=== PATIENT | female | born 1980 | race Caucasian/White ===

== ENCOUNTER → 2018-11-04 | Outpatient (REF) | payer OTHER ==
[~2018-11-04] MED LIST: /CIPR75TA; /DULO30CA; /WARF25TA; /WARF2TA; ACET500C; ACET65TA; DARV100T; EC-N500T; KARIVA; TRAM50TA2; TRAMADOL; TUSSSUS5; ZANT150T
[2018-11-04 20:19] LABS: AMORPHOUS SEDIMENT LARGE (NEGATIVE); APPEARANCE, URINE CLOUDY (CLEAR); BACTERIA, URINE AUTO NEGATIVE (NEGATIVE); BILIRUBIN, URINE AUTO NEGATIVE (NEGATIVE); BLOOD, URINE BLOOD NEGATIVE (NEGATIVE); COLOR, URINE YELLOW (YELLOW); GLUCOSE, URINE (UA) AUTO NEGATIVE (NEGATIVE); KETONE, URINE AUTO NEGATIVE (NEGATIVE); LEUKOCYTE ESTERASE, URINE AUTO NEGATIVE (NEGATIVE); NITRITE, URINE AUTO NEGATIVE (NEGATIVE); PROTEIN, URINE AUTO NEGATIVE (NEGATIVE); RBC, URINE AUTO 1 /HPF (0-3); SPECIFIC GRAVITY URINE AUTO 1.019 (1.002-1.035); SQUAMOUS EPITHELIAL CELL UR AU 2 /HPF (0-6); UROBILINOGEN, URINE AUTO 0.2 mg/dL (0.0-2.0); WBC, URINE AUTO 0 /HPF (0-3)
== END ==
LOC: M LAB REF 09:39
PROVIDERS: ATTEND Physician Assistant
DX: N39.0 Urinary tract infection, site not specified (principal)

== ENCOUNTER → 2018-11-23 | Outpatient (REF) | payer OTHER ==
[2018-11-25 14:55] LABS: HPV HYBRID CAPTURE II Negative (Negative)
== END ==
LOC: M LAB REF 17:47
PROVIDERS: ATTEND Obstetrics & Gynecology
DX: Z12.4 Encounter for screening for malignant neoplasm of cervix (principal)

== ENCOUNTER → 2019-11-16 | Outpatient (CLI) | payer OTHER ==
[~2019-11-16] MED LIST changes: -/DULO30CA; -/WARF25TA; -/WARF2TA; +COUM1TAB16; +COUM1TAB18; +CYMB1CAP5
--- NOTE | 2019-11-16 12:00 | REP ---
DIGITAL DIAGNOSTIC BILATERAL MAMMOGRAPHY WITH CAD, 3-D TOMOGRAPHY, AND FOCUSED LEFT BREAST SONOGRAPHY: HISTORY: Left breast cyst. The patient reports upper outer quadrant pain on the left with thickening and tenderness. Comparison is made with prior mammography of the right breast from [facility] dated this April 12, 2008 and December 06, 2008. MAMMOGRAPHIC FINDINGS: Breast parenchyma is heterogeneously dense in a pattern which inhibits the sensitivity of mammography. On routine mammographic views, there is a needle biopsy marker clip in the right breast medially at the site where prior mammography showed a nodule. By history, this was benign. No dominant density is seen in either breast mammographically. 3D tomography shows no suspicious finding. SONOGRAPHIC FINDINGS: The upper outer quadrant of the left breast was scanned. Heterogeneous fibroglandular background echotexture is seen. There are three hypoechoic nodules seen. In the 1-o'clock position, there is a 0.7 x 0.3 x 0.5 cm hypoechoic oval shaped nodule located 3.6 cm from the nipple. At 2-o'clock position, there is a 1.4 x 0.7 x 1.5 cm hypoechoic nodule located 4.5 cm from the nipple. At 2-o'clock position, there is also a 1.6 x 0.6 x 1.3 cm nodule located 3.1 cm from the nipple. Each of these is oval in shape with its long axis parallel to the skin. They have a somewhat lobulated borders with enhanced through transmission. They are consistent with fibroadenomas although nonspecific. No cyst is seen. No architectural distortion is noted. IMPRESSION: BIRADS 3: BI-RADS/ACR category 3 mammogram. Probably Benign Findings. BIRADS category 3 probably benign breast imaging. There are three solid hypoechoic nodules in the upper outer quadrant of the left breast compatible with fibroadenomas. Followup sonography is recommended in 6 months. Mammography is unremarkable and can be repeated in 1 year bilaterally. This mammogram was interpreted with the aid of an FDA-approved computer-aided detection system. The patient states she had a clinical breast exam in November 2019. The patient letter being requested is M3 dense. This patient's estimated [facility] lifetime risk assessment for the breast cancer is 12.6 %. Electronically Signed by Gil Ibrahim MD 11/16/2019 01:31 P
== END ==
LOC: M RAD 08:01
PROVIDERS: ATTEND Advanced Practice Midwife
DX: N60.02 Solitary cyst of left breast (principal)
CPT/HCPCS: 76642; 77066; G0279

== ENCOUNTER → 2019-12-02 | Outpatient (CLI) | payer OTHER ==
[~2019-12-02] MED LIST changes: +LIDOCAINE 1% MDV 20ML VIAL As Ordered ONE; +SODIUM BICARBONATE 8.4% INJ 50MEQ 50 ML VIAL As Ordered ONE
[2019-12-02 09:09] VITALS: BP 114/68
--- NOTE | 2019-12-02 09:59 | REP ---
Digital diagnostic unilateral left breast mammography with CAD: Two views. History: Marker clip placement views. The patient is status post ultrasound-guided needle biopsy procedure. Findings: Craniocaudad and mediolateral views of the left breast demonstrate the HydroMARK clip in the upper outer quadrant posteriorly. There is no evidence of hematoma. Impression: Marker clip from ultrasound-guided biopsy noted in the upper outer quadrant left breast. Electronically Signed by Gil Ibrahim MD 12/02/2019 06:34 P
--- NOTE | 2019-12-02 11:35 | ROOPDOC ---
[facility] Report Of Operation Report of Operation DATE OF PROCEDURE: 12/02/19 PREPROCEDURE DIAGNOSES: left breast masses POSTPROCEDURE DIAGNOSES: left breast masses PROCEDURE: Ultrasound guided biopsy of one of three left breast masses and clip placement SURGEON: Adama Quintero TRANSFER MACHINE OPERATOR: ANESTHESIA:local, 6 cc ESTIMATED BLOOD LOSS: Approximately 1 mL. COMPLICATIONS: none REMARKS: clip in good position on post bx mammogram DESCRIPTION OF PROCEDURE: Lidocaine 1% Sodium Bicarbonate 8.4% Hydromark clip LOT [id number] Expiration 09/19/2022 REF [id number] Bx device: BARD [id number] x10 cm LOT [id number] Expiration 09/05/2022 REF [id number] Informed consent was obtained in the preop area. The most common risk and possible complications including bleeding, hematoma, bruising, infection, injury to surrounding structures were explained to the patient and she expressed understanding. Patient was taken to the procedure room and placed on the bed in the supine position with the left upper extremity placed above the head. Appropriate time out was done stating patients name, date of , and the procedure to be performed. The left breast was prepped and draped in the usual fashion. The ultrasound was used to confirm the location of the lesion in the left breast at 2:00. There were two hypoechoic masses present at that location and one smaller hypoechoic mass at 1:00. Decision before procedure was started to biopsy one of the masses since all of them look similar and likely represent fibroadenomas. Plain Lidocaine 1% and 8.4% sodium bicarbonate 10:1 mix was used to numb the skin, the biopsy site and tissues along the anticipated biopsy tract. Small skin incision was made with blade number 11. BARD Marquee 14G cannula with introducer ([id number]) was inserted through the incision and advanced under the ultrasound guidance to position immediately adjacent to the lesion. Next, the introducer was removed and BARD Marquee 14G biopsy device was places in the cannula. Pre-biopsy imaging, and post-biopsy imaging were captured. Five good core biopsies were taken at various levels of the lesion. Next, the biopsy device was withdrawn and a clip introducer was inserted into the biopsy site via the cannula. The Hydromark clip was deployed under direct vision. Post-clip placement image was captured. Manual pressure over the biopsy cavity and tract was held after the clip introducer was withdrawn. No bleeding was noted upon removal of the pressure. Post-biopsy mammogram of the left breast was obtained and showed clip in expected position. Postprocedural dressing was placed. Patient tolerated procedure well and was taken to the recovery unit in stable condition. Discharge instructions were discussed with the patient and she expressed understanding. ADAMA Avila DO Dec 02, 2019 11:34
--- NOTE | 2019-12-02 13:16 | REP ---
Left breast sonography: History: Left breast biopsy. Findings: Sonographic guidance is provided to Dr. Quintero who performed ultrasound-guided needle biopsy procedure. Electronically Signed by Gil Ibrahim MD 12/02/2019 06:37 P
== END ==
LOC: M IRPRO 07:33
PROVIDERS: ATTEND Surgery
DX: N60.22 Fibroadenosis of left breast (principal)

== ENCOUNTER → 2020-12-05 | Outpatient (REF) | payer OTHER ==
[~2020-12-05] MED LIST changes: -LIDOCAINE 1% MDV 20ML VIAL As Ordered ONE; -SODIUM BICARBONATE 8.4% INJ 50MEQ 50 ML VIAL As Ordered ONE
[2020-12-05 18:37] LABS: APPEARANCE, URINE CLEAR (CLEAR); BACTERIA, URINE AUTO NEGATIVE (NEGATIVE); BILIRUBIN, URINE AUTO NEGATIVE (NEGATIVE); BLOOD, URINE BLOOD NEGATIVE (NEGATIVE); COLOR, URINE YELLOW (YELLOW); GLUCOSE, URINE (UA) AUTO NEGATIVE (NEGATIVE); KETONE, URINE AUTO NEGATIVE (NEGATIVE); LEUKOCYTE ESTERASE, URINE AUTO NEGATIVE (NEGATIVE); NITRITE, URINE AUTO NEGATIVE (NEGATIVE); PROTEIN, URINE AUTO NEGATIVE (NEGATIVE); RBC, URINE AUTO 0 /HPF (0-3); SPECIFIC GRAVITY URINE AUTO 1.023 (1.002-1.035); SQUAMOUS EPITHELIAL CELL UR AU 0 /HPF (0-6); UROBILINOGEN, URINE AUTO 0.2 mg/dL (0.0-2.0); WBC, URINE AUTO 1 /HPF (0-3)
== END ==
LOC: M LAB REF 16:35
PROVIDERS: ATTEND Physician Assistant
DX: N39.0 Urinary tract infection, site not specified (principal)

== ENCOUNTER → 2020-12-14 | Outpatient (REF) | payer OTHER ==
[2020-12-14 19:04] LABS: APPEARANCE, URINE CLEAR (CLEAR); BACTERIA, URINE AUTO 1+ (NEGATIVE); BILIRUBIN, URINE AUTO NEGATIVE (NEGATIVE); BLOOD, URINE BLOOD 1+ (NEGATIVE); COLOR, URINE AMBER (YELLOW); GLUCOSE, URINE (UA) AUTO NEGATIVE (NEGATIVE); KETONE, URINE AUTO TRACE mg/dL (NEGATIVE); LEUKOCYTE ESTERASE, URINE AUTO NEGATIVE (NEGATIVE); NITRITE, URINE AUTO POSITIVE (NEGATIVE); PROTEIN, URINE AUTO NEGATIVE (NEGATIVE); RBC, URINE AUTO 9 /HPF (0-3); SPECIFIC GRAVITY URINE AUTO 1.017 (1.002-1.035); SQUAMOUS EPITHELIAL CELL UR AU 0 /HPF (0-6); WBC, URINE AUTO 1 /HPF (0-3)
== END ==
LOC: M LAB REF 18:32
PROVIDERS: ATTEND Physician Assistant
DX: N39.0 Urinary tract infection, site not specified (principal)

== ENCOUNTER → 2020-12-14 | Outpatient (CLI) | payer OTHER ==
--- NOTE | 2020-12-14 20:10 | REP ---
INDICATION: KIDNEY STONES. COMPARISON: None. TECHNIQUE: Two AP views abdomen and pelvis. FINDINGS: There is mild diffuse fecal material throughout the colon. No dilated bowel loops are seen. No abnormal calcifications are seen. No definite renal stones are seen. IUD is seen in the pelvis centrally. The visualized osseous structures are unremarkable. IMPRESSION: Unremarkable KUB. No radiographic evidence of renal stones. <Electronically signed by Feliz Mix > 12/14/202005
== END ==
LOC: M RAD 18:55
PROVIDERS: ATTEND Physician Assistant
DX: Z87.442 Personal history of urinary calculi (principal); Z97.5 Presence of (intrauterine) contraceptive device

== ENCOUNTER 2020-12-25 11:12 | Emergency (ER) | payer OTHER ==
[~2020-12-25] VITALS: Ht 170.2 cm; Wt 70.6 kg
--- OUTSIDE RECORDS SUMMARY | 2020-12-25 11:21 | CCD ---
Author Author [facility] Organization [facility] Address Unknown Phone Unavailable Care Team Providers Care Sail Lay Out Worker Name Role Phone Daina Serrano Unavailable PROBLEMS Type Condition ICD9-CM Code [id number] Code Onset Dates Condition S tatus W/U Status Risk SNOMED Code Notes Problem Urgency of urination 788.63 Active confirmed 51202010 Problem Bilateral kidney stones 592.0 Active confirmed 66859253 Problem History of pulmonary embolism Z86.711 Active confir med 873214708 Problem Factor V Leiden D68.51 Active confirmed 3070 36723 Problem Left ureteral calculus 592.1 Active confirmed 55628965 Problem Rash on lips K13.0 Active confirmed 9755198 Problem MSSA (methicillin susceptible Staphylococcus aureus) A49.01 Active confirmed 352454290 Problem Perioral dermatitis L71.0 Active confirmed 550859916 ALLERGIES Allergen (clinical drug ingredient) Drug/Non Drug Allergy do cumented on EMR Reaction Allergy Type Onset Date Status Morphine [place] Faint, sweaty Non Drug Allergy Active ENCOUNTERS from 1980 to 2020-12-19 Encounter Location Date Provider Diagnosis [facility] [address] [place] [id number] Dec, Daina Serrano IMMUNIZATIONS Vaccine Route Administration Date Status Influenza (6mo & up) Fluzone Unknown April 17, 2015 Ref used Influenza (6mo & up) Fluzone Unknown February 20, 2015 Ref used SOCIAL HISTORY Tobacco Use: Social History Observation Description Date Details (start date - stop date) Never Smoker Sex Assigned At : Social History Observation Description Sex Assigned At Unknown Sexual Hx: Question Answer Notes Had sex in the last 12 months (vaginal, oral, or anal)? Yes Have you ever had an STD? No Prevention Strategies discussed: Other with Men only Use protection? No Tobacco Use: Question Answer Notes Are you a: never smoker REASON FOR REFERRAL No Information VITAL SIGNS No information MEDICATIONS Medication SIG (Take, Route, Frequency, Duration) Notes Start Da te End Date Status Keflex 750 MG as directed Orally Act bina Aspirin 81 MG 1 tablet Orally Once a day Not-Taking PROCEDURES No Information RESULTS No Results REASON FOR VISIT No Information MEDICAL (GENERAL) HISTORY Type Description Date Medical History Factor 5 Leiden mutation, heterozygous Medical History pulmonary embolism May 2010 Medical History left nephrolithiasis Medical History hospital-acquired pneumonia Pseudomonas May 2010 Surgical History D&C 2005 Surgical History Kidney stone 04/19/15 Surgical History x-[id number]- 09/11/16 Surgical History Right breast cyst, benign 2008 ([facility]) 2008 Hospitalization History [facility] Hospitalization History Pneumonia Goals Section No Information Health Concerns No Information MEDICAL EQUIPMENT No Information MENTAL STATUS No Information FUNCTIONAL STATUS No Information ASSESSMENTS No Information PLAN OF TREATMENT Next Appt Details Provider Name:Mike Raman, 2020-12-27 08:00:00 AM, [address], [place], [id number], Insurance Providers Payer Name Payer Address Payer Phone Insured Name Patient Relati onship to Insured Coverage Start Date Coverage End Date [employer] [address] [facility] [phone] T[employer] IYER self
--- OUTSIDE RECORDS SUMMARY | 2020-12-25 11:21 | CCD ---
Author Author [facility] Organization [facility] Address Unknown Phone Unavailable Care Team Providers Care Manager Information Name Role Phone Alexey, Marlene MEDIA STRATEGIST Unavailable Unavailable Alexey, Marlene MEDIA STRATEGIST Unavailable Unavailable Alexey, Marlene MEDIA STRATEGIST Unavailable Unavailable Alexey, Marlene MEDIA STRATEGIST Unavailable Unavailable Alexey, Marlene MEDIA STRATEGIST Unavailable Unavailable Alexey, Marlene MEDIA STRATEGIST Unavailable Unavailable Alexey, Marlene MEDIA STRATEGIST Unavailable Unavailable Alexey, Marlene MEDIA STRATEGIST Unavailable Unavailable Alexey, Marlene MEDIA STRATEGIST Unavailable Unavailable Alexey, Marlene MEDIA STRATEGIST Unavailable Unavailable Alexey, Marlene MEDIA STRATEGIST Unavailable Unavailable Alexey, Marlene MEDIA STRATEGIST Unavailable Unavailable Alexey, Marlene MEDIA STRATEGIST Unavailable Unavailable Alexey, Marlene MEDIA STRATEGIST Unavailable Unavailable Alexey, Marlene MEDIA STRATEGIST Unavailable Unavailable Alexey, Marlene MEDIA STRATEGIST Unavailable Unavailable Alexey, Marlene MEDIA STRATEGIST Unavailable Unavailable Alexey, Marlene MEDIA STRATEGIST Unavailable Unavailable Alexey, Marlene MEDIA STRATEGIST Unavailable Unavailable Alexey, Marlene MEDIA STRATEGIST Unavailable Unavailable Alexey, Marlene MEDIA STRATEGIST Unavailable Unavailable Alexey, Marlene MEDIA STRATEGIST Unavailable Unavailable Alexey, Marlene MEDIA STRATEGIST Unavailable Unavailable Alexey, Marlene MEDIA STRATEGIST Unavailable Unavailable Alexey, Marlene MEDIA STRATEGIST Unavailable Unavailable Alexey, Marlene MEDIA STRATEGIST Unavailable Unavailable Alexey, Marlene MEDIA STRATEGIST Unavailable Unavailable MANJINDER, J Michelle ANP Unavailable Unavailable MANJINDER, J Michelle ANP Unavailable Unavailable MANJINDER, J Michelle ANP Unavailable Unavailable MANJINDER, J Michelle ANP Unavailable Unavailable MANJINDER, J Michelle ANP Unavailable Unavailable MANJINDER, J Michelle ANP Unavailable Unavailable MANJINDER, J Michelle ANP Unavailable Unavailable MANJINDER, J Michelle ANP Unavailable Unavailable MANJINDER, J Michelle ANP Unavailable Unavailable MANJINDER, J Michelle ANP Unavailable Unavailable MANJINDER, J Michelle ANP Unavailable Unavailable MANJINDER, J Michelle ANP Unavailable Unavailable MANJINDER, J Michelle ANP Unavailable Unavailable MANJINDER, J Michelle ANP Unavailable Unavailable MANJINDER, J Michelle ANP Unavailable Unavailable MANJINDER, J Michelle ANP Unavailable Unavailable MANJINDER, J Michelle ANP Unavailable Unavailable MANJINDER, J Michelle ANP Unavailable Unavailable MANJINDER, J Michelle ANP Unavailable Unavailable MANJINDER, J Michelle ANP Unavailable Unavailable MANJINDER, J Michelle ANP Unavailable Unavailable MANJINDER, J Michelle ANP Unavailable Unavailable MANJINDER, J Michelle ANP Unavailable Unavailable MANJINDER, J Michelle ANP Unavailable Unavailable MANJINDER, J Michelle ANP Unavailable Unavailable MANJINDER, J Micehlle ANP Unavailable Unavailable MANJINDER, J Michelle ANP Unavailable Unavailable MANJINDER, J Michelle ANP Unavailable Unavailable MANJINDER, J Michelle ANP Unavailable Unavailable MANJINDER, J Michelle ANP Unavailable Unavailable MANJINDER, J Michelle ANP Unavailable Unavailable MANJINDER, J Michelle ANP Unavailable Unavailable MANJINDER, J Michelle ANP Unavailable Unavailable MANJINDER, J Michelle ANP Unavailable Unavailable MANJINDER, J Michelle ANP Unavailable Unavailable MANJINDER, J Michelle ANP Unavailable Unavailable MANJINDER, J Michelle ANP Unavailable Unavailable MANJINDER, J Michelle ANP Unavailable Unavailable MANJINDER, J Michelle ANP Unavailable Unavailable MANJINDER, J Michelle ANP Unavailable Unavailable MANJINDER, J Michelle ANP Unavailable Unavailable MANJINDER, J Michelle ANP Unavailable Unavailable MANJINDER, J Michelle ANP Unavailable Unavailable MANJINDER, J Michelle ANP Unavailable Unavailable MANJINDER, J Michelle ANP Unavailable Unavailable MANJINDER, J Michelle ANP Unavailable Unavailable MANJINDER, J Michelle ANP Unavailable Unavailable MANJINDER, J Michelle ANP Unavailable Unavailable MANJINDER, J Michelle ANP Unavailable Unavailable MANJINDER, J Michelle ANP Unavailable Unavailable MANJINDER, J Michelle ANP Unavailable Unavailable MANJINEDR, J Michelle ANP Unavailable Unavailable MANJINDER, J Michelle ANP Unavailable Unavailable MANJINDER, J Michelle ANP Unavailable Unavailable MANJINDER, J Michelle ANP Unavailable Unavailable MANJINDER, J Michelle ANP Unavailable Unavailable MANJINDER, J Michelle ANP Unavailable Unavailable MANJINDER, J Michelle ANP Unavailable Unavailable MANJINDER, J Michelle ANP Unavailable Unavailable MANJINDER, J Michelle ANP Unavailable Unavailable MANJINDER, J Mihcelle ANP Unavailable Unavailable MANJINDER, J Michelle ANP Unavailable Unavailable MANJINDER, J Michelle ANP Unavailable Unavailable MANJINDER, J Michelle ANP Unavailable Unavailable MANJINDER, J Michelle ANP Unavailable Unavailable MANJINDER, J Michelle ANP Unavailable Unavailable Re-disclosure Warning The records that you are about to access may contain information from federally-assisted alcohol or drug abuse programs. If such information is present, then the following federally mandated warning applies: This information has been disclosed to you from records protected by federal confidentiality rules (42 CFR part 2). The federal rules prohibit you from making any further disclosure of this information unless further disclosure is expressly permitted by the written consent of the person to whom it pertains or as otherwise permitted by 42 CFR part 2. A general authorization for the release of medical or other information is NOT sufficient for this purpose. The Federal rules restrict any use of the information to criminally investigate or prosecute any alcohol or drug abuse patient.The records that you are about to access may contain highly sensitive health information, the redisclosure of which is protected by Article 27-F of the [facility] Public Health law. If you continue you may have access to information: Regarding HIV / AIDS; Provided by facilities licensed or operated by the [facility] Office of Mental Health; or Provided by the [facility] Office for People With Developmental Disabilities. If such information is present, then the following [facility] mandated warning applies: This information has been disclosed to you from confidential records which are protected by state law. State law prohibits you from making any further disclosure of this information without the specific written consent of the person to whom it pertains, or as otherwise permitted by law. Any unauthorized further disclosure in violation of state law may result in a fine or long term sentence or both. A general authorization for the release of medical or other information is NOT sufficient authorization for further disc losure. Allergies and Adverse Reactions Type Description Substance Reaction Status Data Source(s ) Morphine Morphine Morphine Sulfate 15 MG Extended Release Oral Tablet [place] Faint, sweaty Active eCW1 (Formerly [facility], 1928–1983) Morphine Morphine Morphine Sulfate 15 MG Extended Release Oral Tablet [place] Faint, sweaty Active eCW1 (Formerly [facility], 1928–1983) Morphine Morphine Morphine Sulfate 15 MG Extended Release Oral Tablet [place] Faint, sweaty Active eCW1 (Formerly [facility], 1928–1983) Family History Family Member Name Family Member Gender Family Member Status Date o f Status Description Data Source(s) Unknown Unknown Problem MEDENT ([facility], ) Unknown Unknown Problem MEDENT (Ofelia Xiong MD ) Encounters Encounter Providers Location Date Indications Data Source(s ) Unknown [address] [place] [id number] 12/18/2020 12:00:00 AM EST eCW1 (Formerly [facility], 1928–1983) Outpatient Attender: Marlene Hobbs 08:00:00 AM EDT MEDENT ([facility] ) [facility] Breast [address] [address] 12/08/2019 12:00:00 AM EST eCW1 (Formerly [facility], 1928–1983) [facility] [address] [place] [phone] 12/07/2019 12:00:00 AM EST eCW1 (Formerly [facility], 1928–1983) Outpatient Referrer: Michelle COMBS 12/06/2019 12:13:00 PM EST [facility] [address] [address] 12/01/2019 12:00:00 AM EST eCW1 (Formerly [facility], 1928–1983) Outpatient Referrer: Michelle COMBS 11/30/2019 08:34:00 PM EST [facility] Breast [address] [address] 11/23/2019 12:00:00 AM EST eCW1 (Formerly [facility], 1928–1983) [facility] Breast [address] [address] 11/18/2019 12:00:00 AM EST eCW1 (Formerly [facility], [facility]) [address] [address] 11/15/2019 12:00:00 AM EST eCW1 (Formerly [facility], [facility]–1983) Medications Medication Brand Name Start Date Product Form Dose Route Admi nistrative Instructions Pharmacy Instructions Status Indications Reaction Description Data Source(s) Cephalexin 500 MG Oral Capsule CEPHALEXIN 12/14/2020 12:00:00 AM EST capsule 21 TAKE ONE CAPSULE BY MOUTH THREE TIMES A DAY FOR 7 DAYS TAKE ONE CAPSULE BY MOUTH THREE TIMES A DAY FOR 7 DAYS SOLD: 12/14/2020 [facility] 100 mg 12/12/2020 12:00:00 AM EST capsule 14 TAKE ONE CAPSULE BY MOUTH TWICE A DAY FOR 7 DAYS TAKE ONE CAPSULE BY MOUTH TWICE A DAY FOR 7 DAYS SOLD: 12/12/2020 [facility] 150 mg 12/12/2020 12:00:00 AM EST tablet 2 TAKE ONE TABLET BY MOUTH ONCE A DAY THEN REPEAT IN 48 HOURS TAKE ONE TABLET BY MOUTH ONCE A DAY THEN REPEAT IN 48 HOURS SOLD: 12/12/2020 [facility] 200 mg 12/12/2020 12:00:00 AM EST tablet 6 TAKE ONE TABLET BY MOUTH THREE TIMES A DAY FOR 2 DAYS TAKE ONE TABLET BY MOUTH THREE TIMES A DAY FOR 2 DAYS SOLD: 12/12/2020 [facility] 500 mg 12/05/2020 12:00:00 AM EST tablet 10 TAKE ONE TABLET BY MOUTH EVERY 12 HOURS FOR 5 DAYS TAKE ONE TABLET BY MOUTH EVERY 12 HOURS FOR 5 DAYS SADIE [facility] 150 mg 12/05/2020 12:00:00 AM EST tablet 2 TAKE 1 TABLET BY MOUTH NOW, THEN TAKE 2ND TABLET IN 48 HOURS TAKE 1 TABLET BY MOUTH NOW, THEN TAKE 2N D TABLET IN 48 HOURS SOLD: 12/05/2020 [facility] 200 mg 12/05/2020 12:00:00 AM EST tablet 6 TAKE ONE TABLET BY MOUTH THREE TIMES A DAY FOR 2 DAYS TAKE ONE TABLET BY MOUTH THREE TIMES A DAY FOR 2 DAYS SOLD: 12/05/2020 [facility] 875-125 mg 08/09/2020 12:00:00 AM EDT tablet 20 TAKE ONE TABLET BY MOUTH TWICE A DAY FOR 10 DAYS TAKE ONE TABLET BY MOUTH TWICE A DAY FOR 10 DAYS SOLD: 08/09/2020 [facility] 150 mg 08/09/2020 12:00:00 AM EDT tablet 2 TAKE 1 TABLET BY MOUTH THEN TAKE 2ND TABLET IN 48 HOURS TAKE 1 TABLET BY MOUTH THEN TAKE 2ND TABLET IN 48 HOUR S SOLD: 08/09/2020 [facility] Insurance Providers Payer name Policy type / Coverage type Policy ID Covered alliance party ID Covered alliance party's relationship to pavon Policy Pavon Plan Information [employer] [id number] SP [id number] [employer] [id number] SP [id number] [employer] O [id number] S [id number] MVP [employer] Commercial [id number] 80 [id number] [employer] Commercial [id number] Self [id number] Ghi Medigap Part B [id number] Family Dependent [id number] MVP Health Maintenance Organization (HMO) [id number] Self [id number] Ghi Medigap Part B [id number] Family Dependent [id number] [employer] Maintenance Organization (HMO) [id number] Self [id number] Ghi Medigap Part B [id number] Family Dependent [id number] P Health Maintenance Organization (HMO) [id number] Self [id number] Ghi Medigap Part B Family Dependent P Health Maintenance Organization (HMO) Se lf MVP H [id number] Self [id number] P HEALTH CARE HEA [id number] 80 [id number] MEDICARE IRMA UNAVAILABLE UNAVAILA BLE P HEALTH CARE [id number] SP [id number] P Health Care Commercial Self MVP EXCHANGE U [id number] Self [id number] [facility] Healthcare Commercial P Healthcare Commercial Self [facility] PHY [id number] SP [id number] [facility] PHY [id number] SP [id number] SELF PAY UNAVAILABLE SP UNAVAILA BLE [id number] Problems, Conditions, and Diagnoses Code Display Name Description Problem Type Effective Dates Data Source(s) D68.51 [id number] Factor V Leiden Problem 11/21/2019 12:00:00 AM EST eCW1 ([facility]) Z86.711 [id number] History of pulmonary embolism Problem 11/21/2019 12:00:00 AM EST eCW1 ([facility]) D68.51 [id number] Factor V Leiden Problem 11/21/2019 12:00:00 AM EST eCW1 ([facility]) Z86.711 [id number] History of pulmonary embolism Problem 11/21/2019 12:00:00 AM EST eCW1 ([facility]) Surgeries/Procedures Procedure Description Date Indications Data Source(s) NO CHARGE VISIT 12/07/2019 12:00:00 AM EST eCW1 ([facility]) Results ID Date Data Source [id number] 05/23/2020 08:14:00 AM EDT MEDENT ([facility]) Name Value Range Interpretation Code Description Data Caitlin rce(s) Supporting Document(s) Cholesterol [Mass/volume] in Serum or Plasma 158 mg/dL 131-200 MEDENT ([facility]) Triglyceride [Mass/volume] in Serum or Plasma 39 mg/dL 30-150 MED[facility] ([facility]) Cholesterol in HDL [Mass/volume] in Serum or Plasma 55 mg/dL 35-60 MED[facility] ([facility]) Cholesterol in LDL [Mass/volume] in Serum or Plasma by calcu lation 95 CALC 50-159 MEDENT ([facility]) ID Date Data Source [id number] 05/23/2020 08:14:00 AM EDT MEDENT ([facility]) Name Value Range Interpretation Code Description Data Caitlin rce(s) Supporting Document(s) Glucose [Mass/volume] in Serum or Plasma 79 mg/dL 74-99 MEDENT ([facility]) 100-125 mg/dL PRE-DIABETES/FASTING >126 mg/dL DIABETES/FASTING Urea nitrogen [Mass/volume] in Serum or Plasma 15 mg/dL 7-18 [facility] ([facility]) Sodium [Moles/volume] in Serum or Plasma 140 meq/L 136-145 [facility] ([facility]) Creatinine 0.9 mg/dL 0.6-1.3 [facility] Chloride [Moles/volume] in Serum or Plasma 105 meq/L 98-107 [facility] ([facility]) Potassium [Moles/volume] in Serum or Plasma 4.2 meq/L 3.5-5.1 [facility] ([facility]) Carbon dioxide, total [Moles/volume] in Serum or Plasma 28 meq/L 21 -32 [facility] ([facility]) Alkaline phosphatase isoenzyme [Units/volume] in Serum or Pl asma 38 mg/dL 46-116 [facility] ([facility]) Calcium [Mass/volume] in Serum or Plasma 8.3 mg/dL 8.5-10.1 MED[facility] ([facility]) NOTE: RESULT VERIFIED. Total Bilirubin 1.9 mg/dL 0.2-1.0 MEDENT ([facility]) Aspartate aminotransferase [Enzymatic activity/volume] in Serum or Plasma 13 U/L 15-37 MEDENT ([facility] ) Alanine aminotransferase [Enzymatic activity/volume] in Seru m or Plasma 24 U/L 12-78 MED[facility] ([facility]) Albumin [Mass/volume] in Serum or Plasma 3.9 g/dL 3.4-5.0 MEDENT ([facility]) A/G Ratio 1.39 CALC 1.00-1.90 [facility]) Proteinase 3 Ab [Units/volume] in Serum 6.7 g/dL 6.4-8.2 [facility] ([facility]) Glomerular filtration rate/1.73 sq M pre dicted among non-blacks [Volume Rate/Area] in Serum or Plasma by Creatinine-based formula (MDRD) Laboratory test result [facility] Glomerular filtration rate/1.73 sq M pre dicted among blacks [Volume Rate/Area] in Serum or Plasma by Creatinine-based formula (MDRD) Laboratory test result [facility] <content>CHRONIC KIDNEY DISEASE STAGING PER NKF</content>
<content></content>
<content>STAGE I & II GFR >= 60 NORMAL TO MILDLY DECREASED</content>
<content>STAGE III GFR 30-59 MODERATELY DECREASED</content>
<content>STAGE IV GFR 15-29 SEVERELY DECREASED</content>
<content>STAGE V GFR <15 VERY LITTLE GFR LEFT</content>
<content>ESRD GFR <15 ON REGULATORY COMPLIANCE COORDINATOR</content>
<content></content> ID Date Data Source [id number] 05/23/2020 08:14:00 AM EDT MEDENT ([facility]) Name Value Range Interpretation Code Description Data Caitlin rce(s) Supporting Document(s) Erythrocytes [#/volume] in Blood by Automated count 4.52 x10*6/UL 4.2 0-6.30 MEDENT ([facility]) Leukocytes [#/volume] in Blood by Automated count 3.5 x10*3/UL 4.1-10 .9 MEDENT ([facility]) Hematocrit [Volume Fraction] of Blood by Automated count 39.8 % 3 7.0-51.0 MED[facility] ([facility]) Hemoglobin [Mass/volume] in Blood 13.9 g/dL 12.0-18.0 [facility] ([facility]) MCV 87.9 fL 80.0-97.0 [facility] MCH 30.7 pg 26.0-32.0 [facility] MCHC 34.9 g/dL 31.0-38.0 [facility] Erythrocyte distribution width [Ratio] by Automated count 12.4 % 11.6-13.7 [facility] ([facility]) Platelets [#/volume] in Blood by Automated count 219 x10*3/UL 140-440 [facility] ([facility]) MPV 8.9 FL 7.8-11.0 [facility] Lymph % 42.6 % 10.0-58.5 [facility] Mid % 8.4 % 1.7-9.3 [facility] Neut % 49.0 % 37.0-92.0 [facility] Lymph # 1.5 x10*3/UL 0.6-4.1 [facility] ([facility]) Mid # 0.3 x10*3/UL 0.1-0.6 [facility] ([facility]) Neut # 1.7 x10*3/UL 2.0-7.8 MEDENT ([facility]) Procedure Social History Code Duration Value Status Description Data Source(s ) Smoking 12/18/2020 12:00:00 AM EST Never Smoker completed Never S moker eCW1 ([facility]) Vital Signs ID Date Data Source UNK Name Value Range Interpretation Code Description Data Source(s) Body mass index (BMI) [Ratio] 23.4 kg/m2 23.4 k g/m2 MED[facility] ([facility]) Oxygen saturation in Arterial blood by Pulse oximetry 99 % 99 % MEDENT ([facility]) Body weight 146.00 [lb_av] 146.00 [lb_av] MEDEN T ([facility]) Body height 66.25 [in_i] 66.25 [in_i] [facility] 5'6.25" Heart rate 78 /min 78 /min MEDENT ([facility]) Diastolic blood pressure 74 mm[Hg] 74 mm[Hg] MEDENT ([facility]) Systolic blood pressure 132 mm[Hg] 132 mm[Hg] M EDENT ([facility]) Diastolic blood pressure 66 mm[Hg] 66 mm[Hg] eCW1 ([facility]) Systolic blood pressure 100 mm[Hg] 100 mm[Hg] e CW1 ([facility]) Body mass index (BMI) [Ratio] 23.63 kg/m2 23.63 kg/m2 [facility] ([facility]) Body height 66 [in_us] 66 [in_us] W1 ([facility]) Body weight Measured 146.4 [lb_av] 146.4 [lb_av ] W1 ([facility]) Diastolic blood pressure 78 mm[Hg] 78 mm[Hg] eCW1 ([facility]) Systolic blood pressure 130 mm[Hg] 130 mm[Hg] e CW1 ([facility]) Body temperature 97.8 [degF] 97.8 [degF] [facility] ( [facility]) Respiratory rate 16 /min 16 /min eCW1 ([facility]) Heart rate 68 /min 68 /min eCW1 ([facility]) Body mass index (BMI) [Ratio] 23.72 kg/m2 23.72 kg/m2 eCW1 ([facility]) Body height [in_us] eCW1 ([facility]) Body weight Measured 147 [lb_av] 147 [lb_av] eC W1 ([facility]) Diastolic blood pressure 70 mm[Hg] 70 mm[Hg] eCW1 ([facility]) Systolic blood pressure 122 mm[Hg] 122 mm[Hg] e CW1 ([facility]) Body mass index (BMI) [Ratio] 23.56 kg/m2 23.56 kg/m2 eCW1 ([facility]) Body height [in_us] eCW1 ([facility]) Body weight Measured 146 [lb_av] 146 [lb_av] eC W1 ([facility])
[2020-12-25] MEDS ORDERED: ACETAMINOPHEN 500 MG TAB PO ONE (12:15)
[2020-12-25] MEDS ORDERED: NS 1,000 ML IV ONE (12:15)
[2020-12-25 12:39] LABS: BASO % 0.8 % (0.0-1.0); EOS % 0.8 % (0.0-3.0); HEMATOCRIT 40.2 % (36.0-47.0); HEMOGLOBIN 13.2 g/dl (12.0-15.5); LYMPH # 1.6 10^3/uL (1.5-5.0); LYMPH % 30.8 % (24.0-44.0); MEAN CORPUSCULAR HEMOGLOBIN 30.5 pg (27.0-33.0); MEAN CORPUSCULAR HGB CONC 32.8 g/dl (32.0-36.5); MEAN CORPUSCULAR VOLUME 92.8 fl (80.0-96.0); MONO # 0.4 10^3/uL (0.0-0.8); MONO % 7.6 % (2.0-8.0); NEUTROPHILS # 3.1 10^3/uL (1.5-8.5); NEUTROPHILS % 59.8 % (36.0-66.0); PLATELET COUNT, AUTOMATED 184 10^3/uL (150-450); RED BLOOD COUNT 4.33 10^6/uL (4.00-5.40); WHITE BLOOD COUNT 5.1 10^3/uL (4.0-10.0)
--- OUTSIDE RECORDS SUMMARY | 2020-12-25 12:59 | CCD ---
Author Author [facility] Organization [facility] Address Unknown Phone Unavailable Care Team Providers Care Prawn Trawler Hand Name Role Phone Alexey, Marlene COMMERCIAL ANALYST Unavailable Unavailable Alexey, Marlene COMMERCIAL ANALYST Unavailable Unavailable Alexey, Marlene COMMERCIAL ANALYST Unavailable Unavailable Alexey, Marlene COMMERCIAL ANALYST Unavailable Unavailable Alexey, Marlene COMMERCIAL ANALYST Unavailable Unavailable Alexey, Marlene COMMERCIAL ANALYST Unavailable Unavailable Alexey, Marlene COMMERCIAL ANALYST Unavailable Unavailable Alexey, Marlene COMMERCIAL ANALYST Unavailable Unavailable Alexey, Marlene COMMERCIAL ANALYST Unavailable Unavailable Alexey, Marlene COMMERCIAL ANALYST Unavailable Unavailable Alexey, Marlene COMMERCIAL ANALYST Unavailable Unavailable Alexey, Marlene COMMERCIAL ANALYST Unavailable Unavailable Alexey, Marlene COMMERCIAL ANALYST Unavailable Unavailable Alexey, Marlene COMMERCIAL ANALYST Unavailable Unavailable Alexey, Marlene COMMERCIAL ANALYST Unavailable Unavailable Alexey, Marlene COMMERCIAL ANALYST Unavailable Unavailable Alexey, Marlene COMMERCIAL ANALYST Unavailable Unavailable Alexey, Marlene COMMERCIAL ANALYST Unavailable Unavailable Alexey, Marlene COMMERCIAL ANALYST Unavailable Unavailable Alexey, Marlene COMMERCIAL ANALYST Unavailable Unavailable Alexey, Marlene COMMERCIAL ANALYST Unavailable Unavailable Alexey, Marlene COMMERCIAL ANALYST Unavailable Unavailable Alexey, Marelne COMMERCIAL ANALYST Unavailable Unavailable Alexey, Marlene COMMERCIAL ANALYST Unavailable Unavailable Alexey, Marlene COMMERCIAL ANALYST Unavailable Unavailable Alexey, Marlene COMMERCIAL ANALYST Unavailable Unavailable Alexey, Marlene COMMERCIAL ANALYST Unavailable Unavailable MANJINDER, J Michelle ANP Unavailable [...] is protected by Article 27-F of the [facility] Public Health law. If you continue you may have access to information: Regarding HIV / AIDS; Provided by facilities licensed or operated by the [facility] Office of Mental Health; or Provided by the [facility] Office for People With Developmental Disabilities. If such information is present, then the following [facility] mandated warning applies: This information has been [...] law may result in a fine or retirement sentence or both. A general authorization for the release of medical or other information is NOT sufficient authorization for further disc losure. Allergies and Adverse Reactions Type Description Substance Reaction Status Data Source(s ) Morphine Morphine Morphine Sulfate 15 MG Extended Release Oral Tablet Sherwood Faint, sweaty Active eCW1 ([facility]) Morphine Morphine Morphine Sulfate 15 MG Extended Release Oral Tablet Sherwood Faint, sweaty Active eCW1 ([facility]) Morphine Morphine Morphine Sulfate 15 MG Extended Release Oral Tablet Sherwood Faint, sweaty Active eCW1 ([facility]) Family History Family Member Name Family Member Gender Family Member Status Date o f Status Description Data Source(s) Unknown Unknown Problem [facility]ENT ([facility], ) Unknown Unknown Problem MEDENT (Ofelia Xiong MD ) Encounters Encounter Providers Location Date Indications Data Source(s ) Unknown [address] [place] [phone] 12/18/2020 12:00:00 AM EST eCW1 ([facility]) Outpatient Attender: Marlene Hobbs 08:00:00 AM EDT MEDENT ([facility] ) [facility] Breast [address] [address] 12/08/2019 12:00:00 AM EST eCW1 ([facility]) [facility] Breast Center [address] [place] [phone] 12/07/2019 12:00:00 AM EST eCW1 ([facility]) Outpatient Referrer: Michelle COMBS 12/06/2019 12:13:00 PM EST [facility] [address] [address] 12/01/2019 12:00:00 AM EST eCW1 ([facility]) Outpatient Referrer: Michelle COMBS 11/30/2019 08:34:00 PM EST [facility] Breast [address] [address] 11/23/2019 12:00:00 AM EST eCW1 ([facility]) [facility] Breast [address] [address] 11/18/2019 12:00:00 AM EST eCW1 ([facility]) [address] [address] 11/15/2019 12:00:00 AM EST eCW1 ([facility]) Medications Medication Brand Name Start Date Product [...] type / Coverage type Policy ID Covered green party ID Covered green party's relationship to pavon Policy Pavon Plan Information [employer] [id number] SP [id number] [employer] [id number] SP [id number] [employer] O [id number] S 80 [id number] MVP Healthcare Commercial [id number] 80 [id number] MVP Healthcare Commercial [id number] Self [id number] Ghi Medigap Part B [id number] Family Dependent [id number] MVP Health Maintenance Organization (HMO) [id number] Self [id number] Ghi Medigap Part B [id number] Family Dependent [id number] [employer] Health Maintenance Organization (HMO) [id number] Self [id number] Ghi Medigap Part B [id number] Family Dependent [id number] P Health Maintenance Organization (HMO) [id number] Self [id number] Ghi Medigap Part B Family Dependent P Health Maintenance Organization (HMO) Se lf MVP H [id number] Self [id number] P HEALTH CARE HEA [id number] 80 [id number] MEDICARE IRMA UNAVAILABLE UNAVAILA BLE P HEALTH CARE [id number] SP [id number] P Health Care Commercial Self MVP EXCHANGE U [id number] Self [id number] [facility] Healthcare Commercial P Healthcare Commercial Self [facility] PHY [id number] SP [id number] [facility] PHY [id number] SP [id number] SELF PAY UNAVAILABLE SP UNAVAILA BLE [id number] Problems, Conditions, and Diagnoses Code Display Name Description Problem Type Effective Dates Data Source(s) D68.51 [id number] Factor V Leiden Problem 11/21/2019 12:00:00 AM EST eCW1 ([facility]) Z86.711 [id number] History of pulmonary embolism Problem 11/21/2019 12:00:00 AM EST eCW1 ([facility]) D68.51 [id number] Factor V Leiden Problem 11/21/2019 12:00:00 AM EST eCW1 ([facility]) Z86.711 [id number] History of pulmonary embolism Problem 11/21/2019 12:00:00 AM EST eCW1 ([facility]) Surgeries/Procedures Procedure Description Date Indications Data Source(s) NO CHARGE VISIT 12/07/2019 12:00:00 AM EST eCW1 ([facility]) Results ID Date Data Source [id number] 05/23/2020 08:14:00 AM EDT MEDENT ([facility]) Name Value Range Interpretation Code Description Data Caitlin rce(s) Supporting Document(s) Cholesterol [Mass/volume] in Serum or Plasma 158 mg/dL 131-200 MED[facility] ([facility]) Triglyceride [Mass/volume] in Serum or Plasma 39 mg/dL 30-150 [facility] ([facility]) Cholesterol in HDL [Mass/volume] in Serum or Plasma 55 mg/dL 35-60 [facility] ([facility]) Cholesterol in LDL [Mass/volume] in Serum or Plasma by calcu lation 95 CALC 50-159 [facility] ([facility]) ID Date Data Source [id number] 05/23/2020 08:14:00 AM EDT [facility] ([facility]) Name Value Range Interpretation Code Description Data Caitlin rce(s) Supporting Document(s) Glucose [Mass/volume] in Serum or Plasma 79 mg/dL 74-99 [facility] ([facility]) 100-125 mg/dL PRE-DIABETES/FASTING >126 mg/dL DIABETES/FASTING Urea nitrogen [Mass/volume] in Serum or Plasma 15 mg/dL 7-18 [facility] ([facility]) Sodium [Moles/volume] in Serum or Plasma 140 meq/L 136-145 [facility] ([facility]) Creatinine 0.9 mg/dL 0.6-1.3 [facility] Chloride [Moles/volume] in Serum or Plasma 105 meq/L 98-107 [facility] ([facility]) Potassium [Moles/volume] in Serum or Plasma 4.2 meq/L 3.5-5.1 [facility] ([facility]) Carbon dioxide, total [Moles/volume] in Serum or Plasma 28 meq/L 21 -32 [facility] ([facility]) Alkaline phosphatase isoenzyme [Units/volume] in Serum or Pl asma 38 mg/dL 46-116 [facility] ([facility]) Calcium [Mass/volume] in Serum or Plasma 8.3 mg/dL 8.5-10.1 MED[facility] ([facility]) NOTE: RESULT VERIFIED. Total Bilirubin 1.9 mg/dL 0.2-1.0 [facility] ([facility]) Aspartate aminotransferase [Enzymatic activity/volume] in Serum or Plasma 13 U/L 15-37 MED[facility] ([facility] ) Alanine aminotransferase [Enzymatic activity/volume] in Seru m or Plasma 24 U/L 12-78 [facility] ([facility]) Albumin [Mass/volume] in Serum or Plasma 3.9 g/dL 3.4-5.0 [facility] ([facility]) A/G Ratio 1.39 CALC 1.00-1.90 [facility]) Proteinase 3 Ab [Units/volume] in Serum 6.7 g/dL 6.4-8.2 [facility] ([facility]) Glomerular filtration rate/1.73 sq M pre dicted among non-blacks [Volume Rate/Area] in Serum or Plasma by Creatinine-based formula (MDRD) Laboratory test result [facility] Glomerular filtration rate/1.73 sq M pre dicted among blacks [Volume Rate/Area] in Serum or Plasma by Creatinine-based formula (MDRD) Laboratory test result [facility]) <content>CHRONIC KIDNEY DISEASE STAGING PER NKF</content>
<content></content>
<content>STAGE I & II GFR >= 60 NORMAL TO MILDLY DECREASED</content>
<content>STAGE III GFR 30-59 MODERATELY DECREASED</content>
<content>STAGE IV GFR 15-29 SEVERELY DECREASED</content>
<content>STAGE V GFR <15 VERY LITTLE GFR LEFT</content>
<content>ESRD GFR <15 ON EXPLOSION WELDER</content>
<content></content> ID Date Data Source [id number] 05/23/2020 08:14:00 AM EDT MED[facility] ([facility]) Name Value Range Interpretation Code Description Data Caitlin rce(s) Supporting Document(s) Erythrocytes [#/volume] in Blood by Automated count 4.52 x10*6/UL 4.2 0-6.30 [facility] ([facility]) Leukocytes [#/volume] in Blood by Automated count 3.5 x10*3/UL 4.1-10 .9 [facility] ([facility]) Hematocrit [Volume Fraction] of Blood by Automated count 39.8 % 3 7.0-51.0 [facility] ([facility]) Hemoglobin [Mass/volume] in Blood 13.9 g/dL 12.0-18.0 [facility] ([facility]) MCV 87.9 fL 80.0-97.0 [facility] MCH 30.7 pg 26.0-32.0 [facility] MCHC 34.9 g/dL 31.0-38.0 [facility] Erythrocyte distribution width [Ratio] by Automated count 12.4 % 11.6-13.7 [facility] ([facility]) Platelets [#/volume] in Blood by Automated count 219 x10*3/UL 140-440 [facility] ([facility]) MPV 8.9 FL 7.8-11.0 [facility] Lymph % 42.6 % 10.0-58.5 [facility] Mid % 8.4 % 1.7-9.3 [facility] Neut % 49.0 % 37.0-92.0 [facility] Lymph # 1.5 x10*3/UL 0.6-4.1 [facility] ([facility]) Mid # 0.3 x10*3/UL 0.1-0.6 [facility] ([facility]) Neut # 1.7 x10*3/UL 2.0-7.8 [facility] ([facility]) Procedure Social History Code Duration Value Status Description Data Source(s ) Smoking 12/18/2020 12:00:00 AM EST Never Smoker completed Never S moker eCW1 ([facility]) Vital Signs ID Date Data Source UNK Name Value Range Interpretation Code Description Data Source(s) Body mass index (BMI) [Ratio] 23.4 kg/m2 23.4 k g/m2 MED[facility] ([facility]) Oxygen saturation in Arterial blood by Pulse oximetry 99 % 99 % MEDENT ([facility]) Body weight 146.00 [lb_av] 146.00 [lb_av] MEDEN T ([facility]) Body height 66.25 [in_i] 66.25 [in_i] [facility] 5'6.25" Heart rate 78 /min 78 /min MED[facility] ([facility]) Diastolic blood pressure 74 mm[Hg] 74 mm[Hg] MEDENT ([facility]) Systolic blood pressure 132 mm[Hg] 132 mm[Hg] M EDENT ([facility]) Diastolic blood pressure 66 mm[Hg] 66 mm[Hg] eCW1 ([facility]) Systolic blood pressure 100 mm[Hg] 100 mm[Hg] e CW1 ([facility]) Body mass index (BMI) [Ratio] 23.63 kg/m2 23.63 kg/m2 [facility] ([facility]) Body height 66 [in_us] 66 [in_us] W1 ([facility]) Body weight Measured 146.4 [lb_av] 146.4 [lb_av ] W1 ([facility]) Diastolic blood pressure 78 mm[Hg] 78 mm[Hg] eCW1 ([facility]) Systolic blood pressure 130 mm[Hg] 130 mm[Hg] e CW1 ([facility]) Body temperature 97.8 [degF] 97.8 [degF] [facility] ( [facility]) Respiratory rate 16 /min 16 /min eCW1 ([facility]) Heart rate 68 /min 68 /min eCW1 ([facility]) Body mass index (BMI) [Ratio] 23.72 kg/m2 23.72 kg/m2 eCW1 ([facility]) Body height [in_us] eCW1 ([facility]) Body weight Measured 147 [lb_av] 147 [lb_av] eC W1 ([facility]) Diastolic blood pressure 70 mm[Hg] 70 mm[Hg] eCW1 ([facility]) Systolic blood pressure 122 mm[Hg] 122 mm[Hg] e CW1 ([facility]) Body mass index (BMI) [Ratio] 23.56 kg/m2 23.56 kg/m2 eCW1 ([facility]) Body height [in_us] eCW1 ([facility]) Body weight Measured 146 [lb_av] 146 [lb_av] eC W1 ([facility])
[2020-12-25 13:10] LABS: ALBUMIN 3.9 GM/DL (3.2-5.2); BILIRUBIN,DIRECT 0.3 MG/DL (0.0-0.2); BILIRUBIN,TOTAL 1.7 MG/DL (0.2-1.0); TOTAL PROTEIN 6.6 GM/DL (6.4-8.2)
[2020-12-25] MEDS ORDERED: ISOVUE-370 76% 100ML VIAL As Ordered ONE (13:14)
--- NOTE | 2020-12-25 13:56 | REP ---
INDICATION: pelvic pain/pressure, urinary urgency, FHx uterine CA. COMPARISON: Comparison study April 15, 2015.. TECHNIQUE: Helical scanning was acquired and 4 mm axial images are re-formatted. Coronal and sagittal MPR images were generated and reviewed. The contrast enhancement dose is 100 mL of intravenous Isovue 370. FINDINGS: Preliminary digital forest landscape ecology professor radiograph demonstrates an unremarkable bowel gas pattern. An IUD is seen in the pelvis. On axial CT images, the lung bases are clear. There is no evidence of pleural effusion or upper abdominal ascites. The liver and the spleen are normal in size and homogeneous in texture. No focal hepatic lesion is seen. No abnormality is noted in the gallbladder. Normal adrenal glands are seen bilaterally. Pancreas is unchanged in appearance or configuration from the [address] images. Kidneys enhance symmetrically. There is a 2 mm intrarenal calculus in the lower pole of the left kidney. There is another 3 mm calculus in the upper pole the right kidney. No hydronephrosis is seen. No other intrarenal calculus is observed. No bladder calculus or ureteral calculus is observed. The uterus is somewhat enlarged and is retroverted retroflexed. It measures 10.0 cm in length by 5.8 by 7.5 cm in transverse dimension. The IUD is seen in what appears to be good position in the uterus. No ovarian abnormality is appreciated. There is no evidence of distention of either gonadal vein. Small and large bowel loops are normal in the abdomen and pelvis. There is no evidence of obstruction. No pelvic mass or adenopathy is seen. A normal appendix is seen medial to the cecum over the iliac vessels. There is no CT evidence of appendicitis. No abdominal wall defect is seen. No bony destructive lesion is appreciated. IMPRESSION: Bilateral intrarenal nephrolithiasis without evidence of hydronephrosis. No hydronephrosis or other urinary tract calculus is seen. Retroverted retroflexed uterus containing an IUD in good position. <Electronically signed by Angelo Ibrahim > 12/25/20 [id number]
[2020-12-25] MEDS ORDERED: OXYB-54 PO (15:20)
[2020-12-25 16:19] VITALS: BP 120/70
[2020-12-25 17:53] LABS: CHLAMYDIA DNA AMPLIFICATION NEGATIVE (NEGATIVE); GC DNA AMPLIFICATION NEGATIVE (NEGATIVE)
== END 2020-12-25 16:24 | disposition home or self-care (01) ==
LOC: M ED 11:12
DX: N20.0 Calculus of kidney (principal); R39.15 Urgency of urination; E80.6 Other disorders of bilirubin metabolism; R10.2 Pelvic and perineal pain; Z87.59 Personal history of other complications of pregnancy, childbirth and the puerperium; G43.909 Migraine, unspecified, not intractable, without status migrainosus; Z97.5 Presence of (intrauterine) contraceptive device; Z88.5 Allergy status to narcotic agent
CPT/HCPCS: 74177; 80047; 80076; 81001; 83690; 84702; 85025; 87661; 96360; 99284; Q9967

== ENCOUNTER → 2021-01-01 | Outpatient (CLI) | payer OTHER ==
[~2021-01-01] MED LIST changes: +OXYB-54 PO
--- NOTE | 2021-01-01 15:37 | REP ---
INDICATION: R10.2 PELVIC PAIN. COMPARISON: None. TECHNIQUE: Transabdominal and transvaginal scanning performed. FINDINGS: Uterine dimensions are 9.3 x 5.9 x 7.1 cm. Endometrial echo is 8-9 mm in AP dimension and centrally placed. IUD is seen within the endometrial canal. A suspected hypoechoic fibroid is seen in the anterior uterus measuring 1.0 x 1.2 x 0.6 cm. The bladder measures approximately 7.8 x 3.7 cm. The uterus is retroverted.. The right ovary has dimensions of 3.0 x 2.2 x 2.3 cm. It's Doppler flow is normal with a resistive index of 0.44. The left ovary dimensions are 2.9 x 1.6 x 1.5 cm. It's Doppler flow was normal with resistive index of 0.50. Complex dominant follicle of the right ovary measures 1.9 x 1.5 x 1.5 cm. There is mild free fluid in the pelvis. IMPRESSION: Small anterior fibroid. IUD within the endometrial canal. Mild free fluid. No adnexal mass. <Electronically signed by Feliz Mix > 01/01/21 [id number]
== END ==
LOC: M WHC 12:26
PROVIDERS: ATTEND Advanced Practice Midwife
DX: R10.2 Pelvic and perineal pain (principal); Z97.5 Presence of (intrauterine) contraceptive device

== ENCOUNTER → 2021-01-07 | Outpatient (CLI) | payer OTHER ==
--- NOTE | 2021-01-07 11:07 | REPMRS ---
Patient History Family history of endometrial cancer at age 58 in mother, unknown cancer at age 60 in father. Benign US guided breast biopsy of the left breast, December 02, 2019. Right breast biopsy in 2008. 3D TOMOSYNTHESIS WAS PERFORMED. The Ryan Gonzales lifetime risk for breast cancer is 12.5%. Volpara breast density c. Digital Woman Screen Mammo: January 07, 2021 - Exam #: [id number] Bilateral CC and MLO view(s) were taken. Technologist: RT Isabel Prior study comparison: December 02, 2019, left breast digital mammo diagnostic unilateral, performed at [facility]. November 16, 2019, digital mammo diagnostic bilateral, performed at [facility]. FINDINGS: The breast tissue is heterogeneously dense. This may lower the sensitivity of mammography. There has been no change in the appearance of the mammogram from the prior studies. There is a moderate amount of residual fibroglandular tissue which is fairly symmetric. There is no interval development of dominant mass, areas of architectural distortion, or clustered microcalcification typical of malignancy. Assessment: BI-RADS/ACR category 1 mammogram. Negative Mammogram. Recommendation Routine screening mammogram in 1 year (for women over age 40). This mammogram was interpreted with the aid of an FDA-approved computer-aided dectection system. Electronically Signed By: Feliz Mix MD 01/07/21 [id number]
== END ==
LOC: M WHC 10:20
PROVIDERS: ATTEND Advanced Practice Midwife
DX: Z12.31 Encounter for screening mammogram for malignant neoplasm of breast (principal); Z80.49 Family history of malignant neoplasm of other genital organs

== ENCOUNTER → 2021-02-19 | Outpatient (CLI) | payer OTHER ==
--- NOTE | 2021-02-19 16:39 | REP ---
INDICATION: N63.20 LEFT BREAST MASS. COMPARISON: 11/16/2019. TECHNIQUE: Real-time sonographic evaluation of left breast performed. FINDINGS: At the 2 to 3 o'clock position the previously biopsied solid nodules are again identified each containing a biopsy clip. These measure 1.4 x 0.9 x 1.5 cm and 1.5 x 0.7 x 1.3 cm, unchanged since the prior exam. At the 1 to 2 o'clock position there is a hypoechoic nodule again identified measuring 11 x 4 x 5 mm, previously 7 x 3 x 5 mm. IMPRESSION: BIRADS/ACR category 3, probably benign. Three hypoechoic solid nodule again identified between 1 and 3 o'clock as discussed in detail above. Two have been biopsied and reportedly are fibroadenomas, and are stable in size. The other nodule located at 1 to 2 o'clock has minimally increased in size and also likely represents a fibroadenoma. Recommend follow-up ultrasound in 6 months.. RECOMMENDATION: Recommend follow-up left breast ultrasound in 6 months. <Electronically signed by Feliz Mix > 02/19/21 [id number]
== END ==
LOC: M PLAIMG 14:20
PROVIDERS: ATTEND Surgery
DX: N63.20 Unspecified lump in the left breast, unspecified quadrant (principal)

== ENCOUNTER → 2021-08-12 | Outpatient (CLI) | payer OTHER ==
--- NOTE | 2021-08-12 14:43 | REP ---
INDICATION: LEFT BREAST FIBROADENOMA X4. Follow-up of previously biopsied fibroadenomas. Patient is status post ultrasound-guided needle biopsy 02 December 2019. COMPARISON: Comparison left breast sonography February 19, 2021. 16 November 2019 sonography is also reviewed. TECHNIQUE: Targeted left breast sonography is performed. FINDINGS: Heterogeneous fibroglandular background echotexture is seen. There is a 7 mm cyst at 1 o'clock in the left breast on today's sonography. This has a benign appearance. At 1 o'clock in the left breast there is a 6 x 12 x 3 mm hypoechoic area which is felt to be essentially unchanged. In the 2 o'clock position of the left breast there are 2 hypoechoic nodules each of which contains a echogenic marker clip as previously noted. These measure 13 x 7 x 13 mm and 15 x 14 x 9 mm. They are unchanged from the prior study. IMPRESSION: Stable BI-RADS category 3 probably benign findings. Consider additional follow-up sonography 6 months hence. <Electronically signed by Angelo Ibrahim > 08/12/21 [id number]
== END ==
LOC: M WHC 14:03
PROVIDERS: ATTEND Surgery
DX: N63.20 Unspecified lump in the left breast, unspecified quadrant (principal)

== ENCOUNTER → 2021-10-29 | Outpatient (CLI) | payer OTHER ==
[~2021-10-29] MED LIST changes: +ISOVUE-370 76% 100ML VIAL As Ordered ONE
--- NOTE | 2021-10-29 11:32 | REPVR ---
PROCEDURE INFORMATION: Exam: CT Neck With Contrast Exam date and time: 10/29/2021 10:43 AM Age: 40 years old Clinical indication: Other: Swelling of nasopharnyx; Additional info: Localized swelling, mass lump of neck TECHNIQUE: Imaging protocol: Computed tomography images of the neck with contrast. Radiation optimization: All CT scans at this facility use at least one of these dose optimization techniques: automated exposure control; mA and/or kV adjustment per patient size (includes targeted exams where dose is matched to clinical indication); or iterative reconstruction. Contrast material: ISOVUE 370; Contrast volume: 75 ml; Contrast route: INTRAVENOUS (IV); COMPARISON: CT Head without contrast 09/01/2015 12:24 PM FINDINGS: Nasopharynx: Unremarkable. Oropharynx: Unremarkable. No significant tonsillar enlargement. Hypopharynx: Unremarkable. Larynx: Unremarkable. Normal epiglottis. Retropharyngeal space: Unremarkable. Submandibular/Parotid glands: Normal. Glands are normal in size. Thyroid: Normal. No enlarged or calcified nodules. Lymph nodes: Unremarkable. No lymphadenopathy. Trachea: Visualized trachea is unremarkable. Lungs: Unremarkable as visualized. Bones/joints: Unremarkable. No acute fracture. Soft tissues: Unremarkable. No significant soft tissue swelling. IMPRESSION: No acute findings. Electronically signed by: Cyndi Chandler On 10/29/2021 11:31:25 AM
== END ==
LOC: M RAD 10:25
PROVIDERS: ATTEND Physician Assistant Medical
DX: R22.1 Localized swelling, mass and lump, neck (principal)
CPT/HCPCS: 70491; Q9967

== ENCOUNTER → 2022-02-07 | Outpatient (CLI) | payer OTHER ==
[~2022-02-07] MED LIST changes: -ISOVUE-370 76% 100ML VIAL As Ordered ONE
== END ==
LOC: M WHC 09:23
PROVIDERS: ATTEND Nurse Practitioner Women's Health
DX: Z12.31 Encounter for screening mammogram for malignant neoplasm of breast (principal); N63.20 Unspecified lump in the left breast, unspecified quadrant

== ENCOUNTER → 2022-08-26 | Outpatient (CLI) | payer OTHER | LOC: M WHC 07:37 | PROVIDERS: ATTEND Nurse Practitioner Women's Health | DX: D24.2 Benign neoplasm of left breast (principal); R92.8 Other abnormal and inconclusive findings on diagnostic imaging of breast ==

== ENCOUNTER → 2023-05-21 | Outpatient (CLI) | payer OTHER | LOC: M WHC 14:32 | PROVIDERS: ATTEND Nurse Practitioner Family | DX: Z12.31 Encounter for screening mammogram for malignant neoplasm of breast (principal) ==

== ENCOUNTER → 2023-05-21 | Outpatient (REF) | payer OTHER | LOC: M SFHCWAGY 17:58 | PROVIDERS: ATTEND Nurse Practitioner Family | DX: Z12.4 Encounter for screening for malignant neoplasm of cervix (principal) | CPT/HCPCS: 87624; G0123 ==

== ENCOUNTER → 2024-02-04 | Outpatient (CLI) | payer OTHER | LOC: M SOG 08:58 | PROVIDERS: ATTEND Orthopaedic Surgery | DX: M54.50 Low back pain, unspecified (principal) ==

== ENCOUNTER 2024-07-09 09:01 | Emergency (ER) | payer OTHER ==
[~2024-07-09] VITALS: Ht 167.6 cm; Wt 82.5 kg
[2024-07-09] MEDS ORDERED: SEMA0.5P (09:09)
[2024-07-09] MEDS ORDERED: LEXA1TAB (09:09)
[2024-07-09] MEDS ORDERED: RIME75TA (09:09)
[2024-07-09] MEDS ORDERED: ASPI-655 PO (09:09)
[2024-07-09] MEDS ORDERED: ACE65ERTAB PO (09:09)
[2024-07-09 10:10] LABS: BASO % 0.7 % (0.0-1.0); EOS # 0.1 10^3/uL (0.0-0.5); EOS % 1.3 % (0.0-3.0); HEMATOCRIT 44.4 % (36.0-47.0); HEMOGLOBIN 15.4 g/dl (12.0-15.5); LYMPH # 1.7 10^3/uL (1.5-5.0); LYMPH % 36.1 % (24.0-44.0); MEAN CORPUSCULAR HGB CONC 34.7 g/dl (32.0-36.5); MEAN CORPUSCULAR VOLUME 92.1 fl (80.0-96.0); MONO # 0.4 10^3/uL (0.0-0.8); MONO % 8.5 % (2.0-8.0); NEUTROPHILS # 2.4 10^3/uL (1.5-8.5); NEUTROPHILS % 53.2 % (36.0-66.0); PLATELET COUNT, AUTOMATED 236 10^3/uL (150-450); RED BLOOD COUNT 4.82 10^6/uL (4.00-5.40); WHITE BLOOD COUNT 4.6 10^3/uL (4.0-10.0)
[2024-07-09 10:22] LABS: INR 1.03; PROTHROMBIN TIME 13.2 SECONDS (12.5-14.5)
[2024-07-09 10:47] LABS: HCG, SERUM QUALITATIVE NEGATIVE (NEGATIVE)
[2024-07-09] MEDS ORDERED: ISOVUE-370 76% 100ML VIAL As Ordered ONE (10:52)
[2024-07-09] MEDS: ACETAMINOPHEN *IV* 1,000 MG in IV 1 EA IV ONE (11:52)
[2024-07-09 12:18] LABS: CK-MB VALUE MASS < 1.0 NG/ML (<3.6)
[2024-07-09 12:25] LABS: CPK CREATINE PHOSPHOKINASE 41 U/L (34-145); MB/CK RELATIVE INDEX 2.43 (< OR =4)
[2024-07-09] MEDS ORDERED: METH-1165 PO (12:46)
[2024-07-09] MEDS ORDERED: ASPE4PAD TOP (12:46)
[2024-07-09] MEDS: KETOROLAC 30 MG/ML 1ML VIAL IV ONE (12:55)
[2024-07-09] MEDS: diazePAM 5MG TABLET PO ONE (12:55)
[2024-07-09 12:59] VITALS: BP 107/74; TEMP 97.6; O2SAT 98
== END 2024-07-09 13:08 | disposition home or self-care (01) ==
LOC: M ED 09:01
DX: M54.6 Pain in thoracic spine (principal); R00.1 Bradycardia, unspecified; F32.A Depression, unspecified; Z88.5 Allergy status to narcotic agent; Z87.442 Personal history of urinary calculi; Z86.711 Personal history of pulmonary embolism; Z79.82 Long term (current) use of aspirin; Z79.899 Other long term (current) drug therapy
CPT/HCPCS: 71275; 80047; 82550; 82553; 84484; 84703; 85025; 85610; 93005; 96374; 99284; J0131; J1885; Q9967

== ENCOUNTER → 2024-08-01 | Outpatient (CLI) | payer OTHER ==
[~2024-08-01] MED LIST changes: +ACE65ERTAB PO; +ASPE4PAD TOP; +ASPI-655 PO; +LEXA1TAB; +METH-1165 PO; +RIME75TA; +SEMA0.5P
== END ==
LOC: M WUC 14:13
PROVIDERS: ATTEND Internal Medicine
DX: R91.8 Other nonspecific abnormal finding of lung field (principal)